=== PATIENT | female | born 1970 | race Caucasian/White ===

== ENCOUNTER 2020-03-24 21:32 | Emergency (ER) | payer OTHER ==
[2020-03-24 21:39] VITALS: RESP 18; TEMP 97.7
[2020-03-24] MEDS ORDERED: ASPIRIN 81 MG PO STA (22:04)
--- NOTE | 2020-03-24 22:09 | ED ---
Chest Pain HPI - General Chief Complaint: Chest Pain Stated Complaint: Chest pain Time Seen by Provider: 03/24/20 22:03 Source: patient, family Mode of arrival: wheelchair Limitations: no limitations - History of Present Illness Initial Comments: This patient is a 49-year-old woman who presents to be evaluated for shortness of breath and chest tightness. The patient states that symptoms have developed tonight approximately 8:30. She woke with a feeling that she could not breathe and that her chest was tight. The patient is not sure if she was actually experiencing symptoms were dreaming about this. She states that she woke up and her heart was pounding. After number minutes she felt like things had returned to normal but she felt she should be evaluated. MD Complaint: chest pain Onset/Timin -: hour(s) Onset: awoke with symptoms Pain Location: substernal Pain Radiation: none Quality: heaviness Consistency: now resolved Improves With: nothing Worsens With: nothing Anginal Symptoms: dyspnea Treatments Prior to Arrival: none - Related Data Allergies Allergy/AdvReac Type Severity Reaction Status Date / Time No Known Allergies Allergy Verified 03/24/20 21:39 Review of Systems ROS Statement: Those systems with pertinent positive or pertinent negative responses have been documented in the HPI. ROS Other: All systems not noted in ROS Statement are negative. Constitutional: Denies: fever, chills Respiratory: Reports: as per HPI, dyspnea. Denies: cough, wheezes Cardiovascular: Reports: as per HPI, chest pain, palpitations. Denies: dyspnea on exertion, orthopnea, edema, syncope Gastrointestinal: Denies: abdominal pain, nausea, vomiting Genitourinary: Denies: dysuria, hematuria Musculoskeletal: Denies: back pain Skin: Denies: rash Neurological: Denies: headache, weakness, numbness EKG Findings - EKG Comments: EKG Findings:: Possible old anterior infarct. - EKG Results: EKG: interpreted by JOHN PAULD, sinus rhythm (Rate 68 bpm), normal axis, normal ST/T Past Medical History Additional Past Medical History / Comment(s): Breast Cancer 2011 History of Any Multi-Drug Resistant Organisms: None Reported Past Surgical History: Section, Cholecystectomy Past Psychological History: No Psychological Hx Reported Smoking Status: Never smoker Past Alcohol Use History: None Reported Past Drug Use History: None Reported General Exam Limitations: no limitations General appearance: alert, in no apparent distress Head exam: Present: atraumatic, normocephalic Eye exam: Present: normal appearance. Absent: scleral icterus, conjunctival injection ENT exam: Present: normal oropharynx Neck exam: Present: normal inspection, full ROM Respiratory exam: Present: normal lung sounds bilaterally. Absent: respiratory distress, wheezes, rales, rhonchi, stridor, accessory muscle use, decreased breath sounds Cardiovascular Exam: Present: regular rate, normal rhythm, normal heart sounds. Absent: systolic murmur, diastolic murmur, rubs, gallop GI/Abdominal exam: Present: soft. Absent: distended, tenderness, guarding, rebound, rigid, mass Extremities exam: Present: normal inspection, normal capillary refill. Absent: pedal edema, calf tenderness Back exam: Present: normal inspection. Absent: CVA tenderness (R), CVA tenderness (L) Neurological exam: Present: alert Skin exam: Present: warm, dry, intact, normal color. Absent: rash Course Vital Signs 03/24/20 21:36 Temperature 97.7 F Pulse Rate 83 Respiratory 18 Rate Blood Pressure 161/82 O2 Sat by Pulse 95 Oximetry Disposition Clinical Impression: Chest pain Disposition: HOME SELF-CARE Condition: Good Instructions (If sedation given, give patient instructions): Chest Pain (ED) Is patient prescribed a controlled substance at d/c from ED?: No Referrals: None,Stated [Primary Care Provider] - 1-2 days
[2020-03-24 22:23] LABS: Basophils # (A) 0.1 k/uL (0-0.2); Basophils % (A) 1 %; Eosinophils # (A) 0.3 k/uL (0-0.7); Eosinophils % (A) 3 %; HCT 40.5 % (34.0-46.0); HGB 12.9 gm/dL (11.4-16.0); Lymphocytes # (A) 3.7 k/uL (1.0-4.8); Lymphocytes % (A) 38 %; MCH 28.9 pg (25.0-35.0); MCV 90.3 fL (80.0-100.0); Mean Platelet Volume 7.4; Monocytes # (A) 0.4 k/uL (0-1.0); Monocytes % (A) 4 %; Neutrophils # (A) 5.1 k/uL (1.3-7.7); Neutrophils % (A) 52 %; Platelet Count 294 k/uL (150-450); RBC 4.48 m/uL (3.80-5.40); RDW 13.5 % (11.5-15.5); WBC 9.9 k/uL (3.8-10.6)
--- NOTE | 2020-03-24 22:25 | XR ---
EXAMINATION TYPE: XR chest 2V DATE OF EXAM: 03/24/2020 COMPARISON: NONE HISTORY: Chest pain TECHNIQUE: 2 views FINDINGS: Heart and mediastinum are normal. Lungs are clear. Diaphragm is normal. Bony thorax appears normal. IMPRESSION: Normal chest. Normal heart.
[2020-03-24 22:34] LABS: INR 0.9 (<1.2); Partial Thromboplastin Time 23.7 sec (22.0-30.0); Prothrombin Time 9.7 sec (9.0-12.0)
[2020-03-24 22:38] LABS: ALT 16 U/L (4-34); AST 25 U/L (14-36); African American GFR (CKD) >90 (>60 ml/min/1.73 sqM); Alkaline Phosphatase 92 U/L (38-126); Anion Gap 5 mmol/L; Blood Urea Nitrogen 10 mg/dL (7-17); Calcium 9.6 mg/dL (8.4-10.2); Carbon Dioxide 29 mmol/L (22-30); Chloride 107 mmol/L (98-107); Glucose 102 mg/dL (74-99); Magnesium 2.2 mg/dL (1.6-2.3); Non-African American GFR(CKD) 88 (>60 ml/min/1.73 sqM); Potassium 3.7 mmol/L (3.5-5.1); Sodium 141 mmol/L (137-145); Total Bilirubin 0.3 mg/dL (0.2-1.3); Total Protein 6.8 g/dL (6.3-8.2)
[2020-03-25 00:41] VITALS: BP 150/81; PULSE 80
== END 2020-03-25 00:41 | disposition home or self-care (01) ==
LOC: EC 21:32
DX: R07.9 Chest pain, unspecified (principal); Z85.3 Personal history of malignant neoplasm of breast
CPT/HCPCS: 36415; 71046; 80053; 83735; 84484; 85025; 85610; 85730; 93005; 99285